=== PATIENT | male | born 1960 ===

== ENCOUNTER 2025-05-19 06:14 | Day surgery (SDC) | payer OTHER, SELFPAY ==
[2025-05-09 11:22] LABS: Hematocrit 40.0 % (39.0-52.0); Hemoglobin 13.3 g/dL (13.0-18.0); Mean Corp Hgb Conc. 33.3 g/dL (33.0-37.0); Mean Corpuscular Volume 87.5 fL (80.0-94.0); Platelet Count 251 10^3/uL (130-400); Red Cell Dist. Width 12.6 % (11.5-14.5)
[2025-05-09 12:40] LABS: ALT (SGPT) 34 U/L (0-50); AST (SGOT) 30 U/L (17-59); Albumin 4.8 g/dl (3.5-5.0); Alkaline Phosphatase 81 U/L (38-126); Blood Urea Nitrogen 20 mg/dl (9-20); Calcium 9.5 mg/dl (8.4-10.2); Carbon Dioxide 26 mmol/L (22-30); Chloride 102 mmol/L (98-107); Glucose 132 mg/dl (70-99); Potassium 4.8 mmol/L (3.5-5.1); Sodium 136 mmol/L (135-145); Total Protein 7.8 g/dl (6.3-8.2); eGFR > 60.00
[2025-05-09 14:16] VITALS: BMI 37.0
[2025-05-19] VITALS (12 sets, daily range): BP systolic 117–153; BP diastolic 59–79; BMI 37.0
[2025-05-19] MEDS: NORMOSOL-R/PLASMALYTE-A 1000 IV (09:15)
[2025-05-19] MEDS: ZOFRAN 4 MG IV (13:10)
== END 2025-05-19 14:45 | disposition home or self-care (01) ==
LOC: SDS 06:14
PROVIDERS: ATTENDING PHYSICIAN Otolaryngology; FAMILY PHYSICIAN Nurse Practitioner
DX: H72.91 Unspecified perforation of tympanic membrane, right ear (principal)
CPT/HCPCS: 69631; 36415; 80053; 85027; 93005